=== PATIENT | male | born 2000 | race Caucasian/White ===

== ENCOUNTER 2025-06-17 16:13 | Emergency (ER) | payer OTHER ==
[~2025-06-17] VITALS: Ht 188 cm; Wt 104.3 kg
== END 2025-06-17 19:57 | disposition home or self-care (01) ==
LOC: ER 16:13
DX: J02.8 Acute pharyngitis due to other specified organisms (principal); B97.89 Other viral agents as the cause of diseases classified elsewhere
CPT/HCPCS: 87081; 87430; 99283